=== PATIENT | male | born 2000 | race African-American/Black ===

== ENCOUNTER 2019-08-09 08:25 | Emergency (ER) | payer SELFPAY ==
[~2019-08-09] VITALS: Ht 180.3 cm; Wt 77.1 kg
--- NOTE | 2019-08-09 08:58 | NUR ---
Patient discharged to home in stable conditon. Written and verbal after care instructions given. Patient verbalizes understanding of instructions. Patient ambulated with stable gait.
[2019-08-09 09:01] VITALS: BP 121/73
== END 2019-08-09 09:12 | disposition home or self-care (01) ==
LOC: EDBD 08:25 → ER 08:25
DX: S20.212A Contusion of left front wall of thorax, initial encounter (principal); V69.49XA Driver of heavy transport vehicle injured in collision with other motor vehicles in traffic accident, initial encounter; Y93.89 Activity, other specified; Y92.89 Other specified places as the place of occurrence of the external cause; Y99.8 Other external cause status
CPT/HCPCS: A4663